=== PATIENT | female | born 2000 | race Caucasian/White ===

== ENCOUNTER 2024-04-21 11:54 | Emergency (ER) | payer OTHER, SELFPAY ==
[2024-04-21 11:54] VITALS: BP 135/100; PULSE 76; RESP 18; TEMP 36.2; O2SAT 100
[2024-04-21 12:00] VITALS: BP 135/100; PULSE 76; RESP 18; TEMP 36.2; O2SAT 100
--- NOTE | 2024-04-21 12:02 | ED.GENADULT ---
HPI - General Adult General Chief complaint: Unspecified Stated complaint: POSSIBLE CHEMICAL EXPOSURE Time Seen by Provider: 04/21/24 12:01 Source: patient Mode of arrival: ambulatory Limitations: no limitations History of Present Illness HPI narrative: 23-year-old female was painting the [employer] over school room. She has been doing that for the past few days. Today she was in a room which was not well ventilated and while painting she developed -- lightheaded and dizzy. No vertigo. -- Nausea without any vomiting. No abdominal pain. No diarrhea. No fever or chills. No chest pain or shortness of breath no focal neuro deficits. Onset (ago): hour(s) ( 2 hours ago) Severity: mild Pain Consistency: constant Relieving factors: none Exacerbating factors: none Treatments prior to arrival: none Related Data Home Medications Medication Instructions Recorded Confirmed No Home Medications 04/21/24 04/21/24 Allergies Allergy/AdvReac Type Severity Reaction Status Date / Time No Known Allergies Allergy Verified 04/21/24 11:59 Review of Systems Review of Systems: All systems reviewed & are unremarkable except as noted in HPI and below Constitutional: Constitutional: Reports as per HPI and Reports no additional constitutional complaints Eyes: Eyes: Reports as per HPI and Reports no additional eye complaints ENT: Reports system reviewed and no additional complaints, except as documented and Reports as per HPI Cardiovascular: Cardiovascular: Reports as per HPI and Reports no additional cardiovascular complaints Respiratory: Respiratory: Reports as per HPI and Reports no additional respiratory complaints Gastrointestinal: Gastrointestinal: Reports as per HPI and Reports no additional gastrointestinal complaints Genitourinary: Genitourinary: Reports no additional female genitourinary complaints Musculoskeletal: Musculoskeletal: Reports no additional musculoskeletal complaints and Reports as per HPI Integumentary/Breasts: Skin/Breast: Reports system reviewed and no additional complaints, except as docu and Reports as per HPI Neurologic: Reports system reviewed and no additional complaints, except as documented and Reports as per HPI Psychiatric: Psychiatric: Reports no additional psychiatric complaints and Reports as per HPI Endocrine: Endocrine: Reports no additional endocrine complaints and Reports as per HPI Hematologic/Lymphatic: Hematologic/Lymphatic: Reports no additional hematologic/lymphatic complaints and Reports as per HPI Allergic/Immunologic: Allergic/Immunologic: Reports no additional allergic/immunologic complaints and Reports as per HPI Exam Narrative: blood pressure is stable. not orthostatic Const: General: cooperative, healthy appearing, comfortable and no acute distress HENMT: Head: normal to inspection, normocephalic and atraumatic Ears: hearing grossly normal bilaterally Face/Nose/Sinus: Normal external nose present Face and sinus: normal facial exam Mouth: Yes Normal oral and palatal mucosa present, Yes lip normal and Yes tongue normal Throat: posterior oropharynx normal Eyes: General: appearance normal, both eyes and all related structures Neck: Neck: normal visual inspection, full ROM, no lymphadenopathy and no meningeal signs Chest: Chest palpation & inspection: normal inspection of the chest Resp: Effort & Inspection: normal respiratory effort Auscultation: clear to auscultation bilaterally Cardio: Palpation: normal PMI Rate: regular rate Rhythm: regular rhythm Heart sounds: S1 normal heart sound present and S2 normal heart sound present GI: Inspection: normal to inspection Other: no tenderness/ rigidity / rebound. : General: Yes no CVA tenderness Back/Spine/Pelvis: Back: no CVA tenderness Skin: General skin exam: normal color, no rashes or lesions noted, elasticity normal and turgor normal Neuro: General: oriented to person, oriented to place, or
[2024-04-21 12:05] VITALS: RESP 16
--- NOTE | 2024-04-21 12:12 | ECG_ITS ---
Test Date: 2024-04-21 12:26:06 Measurements Intervals [place] Rate: 61 P: 32 OK: 165 QRS: -37 QRSD: 92 T: 2 QT: 412 QTc: 417 Interpretive Statements SINUS RHYTHM WITH SINUS ARRHYTHMIA LEFT AXIS DEVIATION VOLTAGE CRITERIA FOR LEFT VENTRICULAR HYPERTROPHY MINIMAL Q WAVES- ANTEROLAT/HIGH LAT LEADS BORDERLINE ECG No previous ECG available for comparison Electronically Signed On 04-21-2024 15:09:44 CDT by Tigre Greenfield D.O.
[2024-04-21 12:54] LABS: Basophils Absolute Auto 0.02 K/mm3 (0.00-0.10); Basophils Percent Auto 0.3 % (0.0-1.0); Eosinophils Absolute Auto 0.07 K/mm3 (0.02-0.50); Eosinophils Percent Auto 1.2 % (1.0-6.0); Hematocrit 38.5 % (35.0-49.0); Immature Granulocyte Absolute 0.01 K/mm3 (0.00-0.00); Immature Granulocyte Percent A 0.2 % (0.0-0.0); Lymphocytes Absolute Auto 2.52 K/mm3 (1.10-4.50); Lymphocytes Percent Auto 41.7 % (18.0-42.0); Mean Corpuscular HGB Conc 31.2 g/dL (32-36); Mean Corpuscular Hemoglobin 25.8 pg (27.0-31.0); Mean Corpuscular Volume 82.8 fL (78.0-102.0); Mean Platelet Volume 10.3 fl (9.2-11.8); Neutrophils Absolute Auto 3.13 K/mm3 (1.70-7.20); Neutrophils Percent Auto 51.6 % (50.0-70.0); Platelet Count Result 305 K/mm3 (150-420); Red Blood Count 4.65 M/mm3 (4.20-5.40); Red Cell Distribution Width 14.7 % (11.6-14.4); White Blood Count 6.1 K/mm3 (4.8-10.8)
[2024-04-21 13:03] LABS: Appearance Urine Clear (Clear); Bilirubin Urine Negative (Negative); Blood Urine Negative (Negative); Color Urine Light Yellow (Yellow); Glucose Urine UA Negative (Negative); Ketones Urine Negative (Negative); Leukocyte Esterase Ur Negative LEU/UL (Negative); Nitrate Urine Negative (Negative); Protein Urine Negative (Negative); Urobilinogen Urine 0.2 mg/dL (0.2-1.0)
[2024-04-21 13:13] LABS: Lactic Acid Reflex 0.9 mmol/L (0.4-2.0)
[2024-04-21 13:14] LABS: Add Urine Microscopic? NO; Pregnancy On Board Control Positive; Urine Pregnancy Test Negative
[2024-04-21 13:20] LABS: Alanine Aminotransferase 28 U/L (14-59); Albumin Level 3.6 g/dL (3.4-5.0); Alkaline Phosphatase 74 U/L (46-116); Anion Gap 9 mmol/L (4-12); Aspartate Amino Transferase 26 U/L (15-37); Bilirubin,Total 0.4 mg/dL (0.00-1.00); Blood Urea Nitrogen 11 mg/dL (7-18); Calcium 9.2 mg/dL (8.5-10.1); Carbon Dioxide 24 mmol/L (21-32); Chloride 103 mmol/L (98-108); Estimated CRCL calculation 162 ml/min; Estimated Glomerular Filt Rate > 60; Glucose 86 mg/dL (70-99); Osmolality Calculated 280 mOsm/kg (285-295); Potassium 3.7 mmol/L (3.5-5.1); Sodium 136 mmol/L (136-145); Total Protein 7.6 g/dL (6.4-8.2)
[2024-04-21 13:45] VITALS: BP 121/69; PULSE 67; RESP 16; TEMP 36.1; O2SAT 100
== END 2024-04-21 14:04 | disposition home or self-care (01) ==
PROVIDERS: Emergency Provider Internal Medicine Critical Care Medicine
DX: I51.7 Cardiomegaly (principal); R42 Dizziness and giddiness
CPT/HCPCS: 36415; 80053; 81003; 81025; 83605; 84484; 85025; 93005